=== PATIENT | female | born 1990 | race Caucasian/White ===

== ENCOUNTER 2020-08-21 18:48 | Emergency (ER) | payer OTHER, SELFPAY ==
--- NOTE | 2020-08-21 18:53 | XR_ITS ---
WS: [id number] XR chest 2V* [id number] REASON FOR EXAM: cp FINDINGS: The heart and mediastinum are within normal limits. Calcified granulomatous changes are seen in both hemithoraces. There is no active pulmonary parenchym al or pleural disease identified. Bony thorax is intact. XR/XR chest 2V* [id number] IMPRESSION: No acute chest abnormality.
--- NOTE | 2020-08-21 18:53 | ECG_ITS ---
[facility] Test Date: 2020-08-21 Pat Name: Nolvia Vila Department: Room: Gender: Female Gate Keeper: JOHN : 1990 Requested By: Howard Young Order Number: [id number] Reading MD: SRIDHAR ROGER Measurements Intervals [place] Rate: 84 P: 75 MD: 141 QRS: 96 QRSD: 79 T: 9 QT: 356 QTc: 423 Interpretive Statements SINUS RHYTHM WITH SINUS ARRHYTHMIA BORDERLINE RIGHT AXIS DEVIATION [QRS AXIS > 90] NONSPECIFIC T-WAVE ABNORMALITY No previous ECG available for comparison Electronically Signed On 08-23-2020 15:25:12 [employer]ALL [employer]AG[employer] by SRIDHAR ROGER [id number]
[2020-08-21 18:56] VITALS: BP 135/81; PULSE 93; RESP 16; TEMP 36.4; O2SAT 97; BMI 25.3
--- NOTE | 2020-08-21 19:56 | W.ED.URI ---
HPI - URI/Sore Throat General: Chief Complaint: Upper Respiratory Infection Stated Complaint: sore throat, pressure in chest since 2:30pm Time Seen by Provider: 08/21/20 19:55 History of Present Illness: HPI Narrative: Patient is a 29-year-old female comes to the ED with upper respiratory infection symptoms. Patient says since Thursday approximately 3 days ago she developed nasal drainage and congestion, maxillary sinus pain, sore throat and a mild nonproductive cough. Denies any fever, or chills. Patient saw her PCP today was diagnosed with upper respiratory infection and was prescribed amoxicillin. She says she took her first dose of amoxicillin today. She says today she developed some left upper chest pain that is tender upon palpation. She was worried that she might have developed some pneumonia and wanted to come to the ED for evaluation. Denies any shortness of breath, nausea/vomiting, abdominal pain, bladder or bowel symptoms. Associated symptoms: Reports chest pain (Palpable chest wall tenderness.) and nasal congestion; Deny abdominal pain, chills, diarrhea, fever(s), headache(s), nausea or vomiting Review of Systems Const: Denies: fever(s), chills or fatigue Eyes: Denies: change in vision or eye discomfort ENMT: Reports: throat pain, nasal discharge, nasal congestion and sinus pain (Maxillary sinus pain bilaterally); Denies: odynophagia Card: Reports: chest pain (Palpable chest wall tenderness.); Denies: palpitations, edema, swelling of feet/ankles, dyspnea on exertion or orthopnea Resp: Denies: dyspnea, productive cough or non-productive cough GI: Denies: abdominal pain, nausea, vomiting, diarrhea, constipation or hematochezia : Denies: flank pain, dysuria or hematuria Musc: Denies: neck pain, back pain or extremity swelling Skin/Breast: Denies: rash or new lesions Neuro: Denies: headache(s), numbness in extremities or weakness in extremities Physical Exam Const: COMMON NORMALS: no acute distress, patient oriented x3, healthy appearing and alert GENERAL APPEARANCE: cooperative and comfortable HENMT: COMMON NORMALS: normocephalic HEAD & SCALP: normocephalic MOUTH: Normal oral and palatal mucosa present THROAT: uvula midline and posterior oropharynx abnormal cobblestoning and erythema; no exudates Eye: COMMON NORMALS: Equal, round and reactive pupils present PUPIL: Yes Equal, round and reactive pupils present Neck/C-Spine: COMMON NORMALS: supple GENERAL: Yes normal visual inspection Chest: CHEST: Yes tenderness costochondral junction Resp: COMMON NORMALS: normal respiratory effort, No retractions, No use of accessory muscles and clear to auscultation bilaterally EFFORT & INSPECTION: Yes able to speak in complete sentences, No tachypneic and No respiratory distress AUSCULTATION: clear to auscultation bilaterally, no crackles and no wheezes Cardio: COMMON NORMALS: regular rate, regular rhythm, S1 normal heart sound present, S2 normal heart sound present, No gallops present (Cardio), No clicks present (Cardio), No murmurs present (Cardio) and Peripheral pulses 2+ throughout RATE: regular rate RHYTHM: regular rhythm HEART SOUNDS: S1 normal heart sound present and S2 normal heart sound present PERIPHERAL PULSES: Peripheral pulses 2+ throughout GI: COMMON NORMALS: Normal to inspection, nondistended, normoactive bowel sounds present, Soft to palpation, non-tender and no masses PALPATION: Yes Soft to palpation : COMMON NORMALS: Yes no CVA tenderness BLADDER/KIDNEY EXAM: Yes no CVA tenderness Back/Pelvis: COMMON NORMALS: no CVA tenderness Extremity: COMMON NORMALS: normal to inspection and no pedal edema Neuro: COMMON NORMALS: patient oriented x3 and moves all extremities SENSORIUM/ORIENTATION: Yes alert Skin: GENERAL SKIN EXAM: dry skin Course Vital Signs: Vital signs: Vital Signs Temperature 97.6 F 08/21/20 18:56 Pulse Rate 94 08/21/20 21:24 Respiratory Rate 16 08/21/20 21:24 Blood Pressure 136/79 08/21/20 21:24 Pulse Oximetry 98 08/21/20 21:24 MDM - URI/Sore Throat MDM Narrative: Medical decision making narrative: Patient is a 29-year-old female comes to the ED with URI symptoms and chest pain. Patient was seen by her PCP today and was given a prescription for amoxicillin. Patient has symptoms of sore throat, nasal drainage and congestion, maxillary sinus tenderness and chest wall tenderness. Denies fevers. Chest is tender to palpation over costochondral junction. Denies any shortness of breath. Lungs are clear to auscultation bilaterally and patient appears in no acute distress. CBC and CMP was unremarkable. Troponin negative, strep negative, chest x-ray showed no acute findings. EKG showed normal sinus rhythm with no ST segment elevation or depression seen. Patient was diagnosed with costochondritis and upper respiratory infection. She was told to continue taking her previously prescribed medications. Return to ED precautions given. She was told to take NSAIDs to help with chest pain. Follow-up with PCP in 7 to 10 days for reevaluation. Patient understood and agreed with plan. Lab Data: Attestation: I reviewed the patient's lab results. Labs: Lab Results 08/21/20 08/21/20 08/21/20 Range/Units 20:06 20:06 20:06 WBC 10.8 H (4.0-10.0) 10^3/ uL RBC 5.03 (4.1-5.3) 10^6/u L Hgb 15.0 (11.5-15.3) g/dL Hct 45.9 (37.0-47.0) % MCV 91.3 (81-99) fL MCH 29.8 (28.0-34.0) pg MCHC 32.7 (30.0-36.0) g/dL RDW 11.6 L (12.1-15.1) % Plt Count 326 (130-400) 10^3/c mm MPV 10.0 (7.4-10.4) fL Neut % (Auto) 65.8 % Lymph % (Auto) 23.8 % [place] % (Auto) 7.4 % Eos % (Auto) 2.1 % Baso % (Auto) 0.6 % Neut # (Auto) 7.09 (1.8-7.7) 10^3/u L Lymph # (Auto) 2.6 (0.8-4.8) 10^3/u L [place] # (Auto) 0.8 (0.2-0.9) 10^3/u L Eos # (Auto) 0.2 (0.0-0.8) 10^3/u L Baso # (Auto) 0.1 (0.0-0.1) 10^3/u L Nucleated RBC % (a uto) 0 % Nucleated RBCs # 0.0 /100WBC Sodium 139 (136-145) mmol/L Potassium 3.9 (3.5-5.1) mmol/L Chloride 105 (98-107) mmol/L Carbon Dioxide 20 L (22-29) mmol/L Anion Gap 17.9 (5-19) BUN 13 (6-20) mg/dL Creatinine 0.5 (0.5-0.9) mg/dL GFR Calculation 145.9 H (90-130) mL/min Glucose 96 (65-115) mg/dL Calculated Osmolal ity 288 (285-295) mOsm/k g Calcium 9.8 (8.5-10.5) mg/dL Total Bilirubin 0.2 (0.15-1.2) mg/dL AST 15 (0-32) U/L ALT 27 (0-33) U/L Alkaline Phosphata se 76 (35-105) IU/L Troponin T Gen 5 n g/L 6 (0-10) ng/L Total Protein 7.2 (6.6-8.7) g/dL Albumin 4.7 (3.5-5.2) g/dL Globulin 2.5 (1.3-4.6) g/dL HCG, Qual (Negative) Group A Strep Rapi d (Negative) 08/21/20 08/21/20 Range/Units 20:06 20:48 WBC (4.0-10.0) 10^3/ uL RBC (4.1-5.3) 10^6/u L Hgb (11.5-15.3) g/dL Hct (37.0-47.0) % MCV (81-99) fL MCH (28.0-34.0) pg MCHC (30.0-36.0) g/dL RDW (12.1-15.1) % Plt Count (130-400) 10^3/c mm MPV (7.4-10.4) fL Neut % (Auto) % Lymph % (Auto) % [place] % (Auto) % Eos % (Auto) % Baso % (Auto) % Neut # (Auto) (1.8-7.7) 10^3/u L Lymph # (Auto) (0.8-4.8) 10^3/u L [place] # (Auto) (0.2-0.9) 10^3/u L Eos # (Auto) (0.0-0.8) 10^3/u L Baso # (Auto) (0.0-0.1) 10^3/u L Nucleated RBC % (a uto) % Nucleated RBCs # /100WBC Sodium (136-145) mmol/L Potassium (3.5-5.1) mmol/L Chloride (98-107) mmol/L Carbon Dioxide (22-29) mmol/L Anion Gap (5-19) BUN (6-20) mg/dL Creatinine (0.5-0.9) mg/dL GFR Calculation (90-130) mL/min Glucose (65-115) mg/dL Calculated Osmolal ity (285-295) mOsm/k g Calcium (8.5-10.5) mg/dL Total Bilirubin (0.15-1.2) mg/dL AST (0-32) U/L ALT (0-33) U/L Alkaline Phosphata se (35-105) IU/L Troponin T Gen 5 n g/L (0-10) ng/L Total Protein (6.6-8.7) g/dL Albumin (3.5-5.2) g/dL Globulin (1.3-4.6) g/dL HCG, Qual Negative (Negative) Group A Strep Rapi d Negative (Negative) Imaging Data^: CXR: Attestation: I personally reviewed and interpreted this imaging study as follows: My impression: No acute findings. EKG Data^: EKG 1: Attestation: I personally reviewed and interpreted this EKG as follows: EKG interpretation date: 08/21/20 Interpretation: Sinus rhythm, 84 bpm, no ST segment elevation or depression seen. Discharge Plan Discharge Patient Disposition: Home Clinical Impression: Costochondritis Upper respiratory infection Qualifiers: URI type: acute nasopharyngitis (common cold) Qualified Code(s): J00 - Acute nasopharyngitis [common cold] Condition: Stable Prescriptions: No Action amoxicillin 875 mg Tablet 875 mg PO BID RF: 0 Control Pill 1 tab PO DAILY RF: 0 Discharge Orders: Discharge Order (Routine); Ordered 08/21/20 Ordered By: Isrrael Cox Referrals: Melchor Rich MD [Primary Care Provider] - Discharge Diet: Regular Discharge Activity: Resume usual activity Patient Instructions: Costochondritis (ED) Activity Restrictions/Additional Instructions: Follow-up with medical provider as directed in 7 to 10 days for reevaluation. Continue taking all previously prescribed medications. Return to the ER or your medical provider if condition worsens. Please read and understand discharge instructions. If any questions, please ask. Coding Level of Care Code ED Account Relationship Manager for Rajeev Fwd Exam Comprehensive
[2020-08-21 20:36] LABS: HCG, Serum Qual Negative (Negative)
[2020-08-21 20:48] LABS: Alanine Aminotransferase 27 U/L (0-33); Albumin Level 4.7 g/dL (3.5-5.2); Alkaline Phosphatase 76 IU/L (35-105); Anion Gap 17.9 (5-19); Aspartate Amino Transferase 15 U/L (0-32); Blood Urea Nitrogen 13 mg/dL (6-20); Calcium 9.8 mg/dL (8.5-10.5); Carbon Dioxide 20 mmol/L (22-29); Chloride 105 mmol/L (98-107); Creatinine Clr Calc Pharmacy 150.3981; Globulin 2.5 g/dL (1.3-4.6); Glomerular Filtration Rate 145.9 mL/min (90-130); Glucose 96 mg/dL (65-115); Osmolality Calculated 288 mOsm/kg (285-295); Potassium 3.9 mmol/L (3.5-5.1); Sodium 139 mmol/L (136-145); Total Bilirubin 0.2 mg/dL (0.15-1.2); Total Protein 7.2 g/dL (6.6-8.7)
[2020-08-21 20:50] LABS: Basophils # 0.1 10^3/uL (0.0-0.1); Basophils % 0.6 %; Eosinophils # 0.2 10^3/uL (0.0-0.8); Eosinophils % 2.1 %; Hematocrit 45.9 % (37.0-47.0); Lymphocytes # 2.6 10^3/uL (0.8-4.8); Lymphocytes % 23.8 %; Mean Corpuscular HGB Conc 32.7 g/dL (30.0-36.0); Mean Corpuscular Hemoglobin 29.8 pg (28.0-34.0); Mean Corpuscular Volume 91.3 fL (81-99); Monocytes # 0.8 10^3/uL (0.2-0.9); Monocytes % 7.4 %; Neutrophils # 7.09 10^3/uL (1.8-7.7); Neutrophils % 65.8 %; Nucleated Red Blood Cells % 0 %; Platelet Count 326 10^3/cmm (130-400); Red Blood Count 5.03 10^6/uL (4.1-5.3); Red Cell Distribution Width 11.6 % (12.1-15.1); White Blood Count 10.8 10^3/uL (4.0-10.0)
[2020-08-21 20:51] LABS: Troponin T (5th) Once 6 ng/L (0-10)
[2020-08-21 21:10] LABS: Rapid Strep A Test Negative (Negative)
[2020-08-21 21:24] VITALS: BP 136/79; PULSE 94; RESP 16; O2SAT 98
== END 2020-08-21 21:25 | disposition home or self-care (01) ==
PROVIDERS: Emergency Provider Physician Assistant; PCP Family Medicine
DX: M94.0 Chondrocostal junction syndrome [Tietze] (principal); J00 Acute nasopharyngitis [common cold]
CPT/HCPCS: 12345; 71046; 80053; 84484; 84703; 85025; 87081; 87880; 93005; 99283

== ENCOUNTER 2021-07-08 16:23 | Emergency (ER) | payer OTHER, SELFPAY ==
[2021-07-08 16:48] VITALS: BP 131/88; PULSE 82; RESP 16; TEMP 36.9; O2SAT 99
--- NOTE | 2021-07-08 17:35 | ED_ITS ---
Documented by User: Thomas Sanchez DO 07/13/21 15:15 HPI - General: Chief complaint: Abdominal Pain Stated complaint: Pelvic Pain, thinking poss miscarriage Time Seen by Provider: 07/08/21 17:09 History of Present Illness: HPI Narrative: 30-year-old female presents to the emergency room complaining of pelvic pain with vaginal bleeding. She started having the pain 2 weeks 2 days ago. She has been having some spotting with some old blood she denies any dysuria urgency or frequency has some suprapubic pain. She reports being approximately 6 weeks gestation patient is SAB 1. She usually sees Dr. Rich. She denies any other symptoms. No purulent vaginal discharge. MD Complaint: vaginal bleeding Onset (ago): hour(s) Pain Consistency: intermittent Location: pelvis Severity: mild Quality: Cramping Relieving factors: none Exacerbating factors: none Vaginal bleeding: light Patient : Yes care: none Associated symptoms: Deny abdominal pain, dyspareunia, dysuria, headache(s), malaise, nausea, rash, seizures, short of breath, syncope, vaginal bleeding, vaginal discharge, visual changes, vomiting or weakness Review of Systems Const: Denies: malaise ENMT: Denies: throat pain, ear or mastoid pain, nasal discharge or nasal congestion Card: Denies: syncope Resp: Denies: dyspnea, productive cough or non-productive cough GI: Denies: abdominal pain, nausea or vomiting : Denies: dysuria, vaginal discharge or dyspareunia Skin/Breast: Denies: rash or pruritus Neuro: Denies: headache(s) Physical Exam Const: COMMON NORMALS: no acute distress GENERAL APPEARANCE: cooperative and comfortable ORIENTATION/CONSCIOUSNESS: Yes awake, Yes oriented to person, Yes oriented to place and Yes oriented to time HENMT: COMMON NORMALS: normocephalic, atraumatic and hearing grossly normal bilaterally HEAD & SCALP: normocephalic and atraumatic Neck/C-Spine: COMMON NORMALS: no JVD Resp: COMMON NORMALS: normal respiratory effort, No retractions, No use of accessory muscles and clear to auscultation bilaterally AUSCULTATION: clear to auscultation bilaterally Cardio: COMMON NORMALS: no JVD, regular rate, regular rhythm and No murmurs present (Cardio) RATE: regular rate RHYTHM: regular rhythm GI: COMMON NORMALS: Soft to palpation and No hepatosplenomegaly present AUSCULTATION: Yes normoactive bowel sounds PALPATION: Yes Soft to palpation, No Tenderness to palpation present (GI), No Guarding due to palpation present (GI) and Yes No hepatosplenomegaly present : SPECULUM EXAM - VAGINA: No vaginal bleeding OB/EXTERNAL & SPECULUM: No vaginal bleeding Extremity: COMMON NORMALS: normal to inspection, capillary refill normal, no clubbing, cyanosis or edema, no calf tenderness and no pedal edema Neuro: SENSORIUM/ORIENTATION: Yes oriented to person, Yes oriented to place and Yes oriented to time Skin: COMMON NORMALS: no rashes or lesions noted GENERAL SKIN EXAM: no rashes or lesions noted Course Vital Signs: Vital signs: Vital Signs Temperature 98.4 F 07/08/21 16:48 Pulse Rate 72 07/08/21 19:32 Respiratory Rate 18 07/08/21 19:32 Blood Pressure 122/81 07/08/21 18:57 Pulse Oximetry 99 07/08/21 19:32 MDM - OB/Uterine Contractions MDM Narrative: Medical decision making narrative: Care turned over to Dr. Young at change of see his notes from diagnosis and disposition. Lab Data: Labs: Lab Results 07/08/21 07/08/21 07/08/21 17:40 17:40 17:40 WBC 11.4 10^3/uL H 10 ^3/uL (4.0-10.0) RBC 4.72 10^6/uL 10^6 /uL (4.1-5.3) Hgb 14.3 g/dL g/dL (11.5-15.3) Hct 43.0 % % (37.0-47.0) MCV 91.1 fl fl (81-99) MCH 30.3 pg pg (28.0-34.0) MCHC 33.3 g/dL g/dL (30.0-36.0) RDW 12.1 % % (12.1-15.1) Plt Count 298 10^3/cmm 10^3 /cmm (130-400) MPV 10.2 fL fL (7.4-10.4) Neut % (Auto) 69.9 % % Lymph % (Auto) 20.6 % % [place] % (Auto) 7.0 % % Eos % (Auto) 1.7 % % Baso % (Auto) 0.5 % % Neut # (Auto) 7.99 10^3/uL H 10 ^3/uL (1.8-7.7) Lymph # (Auto) 2.4 10^3/uL 10^3/ uL (0.8-4.8) [place] # (Auto) 0.8 10^3/uL 10^3/ uL (0.2-0.9) Eos # (Auto) 0.2 10^3/uL 10^3/ uL (0.0-0.8) Baso # (Auto) 0.1 10^3/uL 10^3/ uL (0.0-0.1) Nucleated RBC % (a uto) 0 % % Nucleated RBCs # 0.0 /100WBC /100W BC Sodium 137 mmol/L mmol/L (136-145) Potassium 3.8 mmol/L mmol/L (3.5-5.1) Chloride 105 mmol/L mmol/L (98-107) Carbon Dioxide 20 mmol/L L mmol/ L (22-29) Anion Gap 15.8 (5-19) BUN 11 mg/dL mg/dL (6-20) Creatinine 0.5 mg/dL mg/dL (0.5-0.9) GFR Calculation 144.9 mL/min H mL /min (90-130) Glucose 87 mg/dL mg/dL (65-115) Calculated Osmolal ity 283 mOsm/kg L mOs m/kg (285-295) Calcium 8.8 mg/dL mg/dL (8.5-10.5) Ser , Leighann i-Qnt 9551.00 mIU/mL mI U/mL Urine Color Urine Appearance Urine pH Ur Specific Gravit y Urine Protein Urine Glucose (UA) Urine Ketones Urine Blood Urine Nitrate Urine Bilirubin Urine Urobilinogen Ur Leukocyte Hillary ase Rho(D) Type Positive 07/08/21 17:49 WBC RBC Hgb Hct MCV MCH MCHC RDW Plt Count MPV Neut % (Auto) Lymph % (Auto) [place] % (Auto) Eos % (Auto) Baso % (Auto) Neut # (Auto) Lymph # (Auto) [place] # (Auto) Eos # (Auto) Baso # (Auto) Nucleated RBC % (a uto) Nucleated RBCs # Sodium Potassium Chloride Carbon Dioxide Anion Gap BUN Creatinine GFR Calculation Glucose Calculated Osmolal ity Calcium Ser , Leighann i-Qnt Urine Color Yellow (Yellow) Urine Appearance Clear (CLEAR) Urine pH 6 (5-7) Ur Specific Gravit y 1.020 (1.005-1.030) Urine Protein Neg (Negative) Urine Glucose (UA) Norm (Normal) Urine Ketones Negative (Negative) Urine Blood Neg (Negative) Urine Nitrate Negative (Negative) Urine Bilirubin Neg (Negative) Urine Urobilinogen 1 mg/dL H mg/dL (Negative) Ur Leukocyte Hillary ase Negative (Negative) Rho(D) Type Discharge Plan Discharge Patient Disposition: Home Clinical Impression: Abdominal pain affecting Condition: Stable Prescriptions: No Action amoxicillin 875 mg Tablet 875 mg PO BID RF: 0 Control Pill 1 tab PO DAILY RF: 0 Discharge Orders: Discharge ED (Routine); Ordered 07/08/21 Ordered By: Howard Young Referrals: Melchor Rich MD [Primary Care Provider] - 4-7 days Discharge Diet: Advance as tolerated Discharge Activity: Resume usual activity Patient Instructions: Abdominal Pain (ED) Coding Level of Care Code ED Consulting Software Engineer for Chg Fwd Documented by User: Howadr Young MD 07/08/21 19:26 HPI - General: Chief complaint: Abdominal Pain Stated complaint: Pelvic Pain, thinking poss miscarriage Time Seen by Provider: 07/08/21 17:09 Course Vital Signs: Vital signs: Vital Signs Temperature 98.4 F 07/08/21 16:48 Pulse Rate 72 07/08/21 19:32 Respiratory Rate 18 07/08/21 19:32 Blood Pressure 122/81 07/08/21 18:57 Pulse Oximetry 99 07/08/21 19:32 MDM - OB/Uterine Contractions MDM Narrative: Medical decision making narrative: Patient presents with abdominal pain and . Ultrasound here showed 6-week fetus with heart rate of 106 per maintenance service technician pelvic exam here showed no bleeding was a normal. She is stable for discharge is to follow-up with PCP and return if worsening. Lab Data: Labs: Lab Results 07/08/21 07/08/21 07/08/21 17:40 17:40 17:40 WBC 11.4 10^3/uL H 10 ^3/uL (4.0-10.0) RBC 4.72 10^6/uL 10^6 /uL (4.1-5.3) Hgb 14.3 g/dL g/dL (11.5-15.3) Hct 43.0 % % (37.0-47.0) MCV 91.1 fl fl (81-99) MCH 30.3 pg pg (28.0-34.0) MCHC 33.3 g/dL g/dL (30.0-36.0) RDW 12.1 % % (12.1-15.1) Plt Count 298 10^3/cmm 10^3 /cmm (130-400) MPV 10.2 fL fL (7.4-10.4) Neut % (Auto) 69.9 % % Lymph % (Auto) 20.6 % % [place] % (Auto) 7.0 % % Eos % (Auto) 1.7 % % Baso % (Auto) 0.5 % % Neut # (Auto) 7.99 10^3/uL H 10 ^3/uL (1.8-7.7) Lymph # (Auto) 2.4 10^3/uL 10^3/ uL (0.8-4.8) [place] # (Auto) 0.8 10^3/uL 10^3/ uL (0.2-0.9) Eos # (Auto) 0.2 10^3/uL 10^3/ uL (0.0-0.8) Baso # (Auto) 0.1 10^3/uL 10^3/ uL (0.0-0.1) Nucleated RBC % (a uto) 0 % % Nucleated RBCs # 0.0 /100WBC /100W BC Sodium 137 mmol/L mmol/L (136-145) Potassium 3.8 mmol/L mmol/L (3.5-5.1) Chloride 105 mmol/L mmol/L (98-107) Carbon Dioxide 20 mmol/L L mmol/ L (22-29) Anion Gap 15.8 (5-19) BUN 11 mg/dL mg/dL (6-20) Creatinine 0.5 mg/dL mg/dL (0.5-0.9) GFR Calculation 144.9 mL/min H mL /min (90-130) Glucose 87 mg/dL mg/dL (65-115) Calculated Osmolal ity 283 mOsm/kg L mOs m/kg (285-295) Calcium 8.8 mg/dL mg/dL (8.5-10.5) Ser , Leighann i-Qnt 9551.00 mIU/mL mI U/mL Urine Color Urine Appearance Urine pH Ur Specific Gravit y Urine Protein Urine Glucose (UA) Urine Ketones Urine Blood Urine Nitrate Urine Bilirubin Urine Urobilinogen Ur Leukocyte Hillary ase Rho(D) Type Positive 07/08/21 17:49 WBC RBC Hgb Hct MCV MCH MCHC RDW Plt Count MPV Neut % (Auto) Lymph % (Auto) [place] % (Auto) Eos % (Auto) Baso % (Auto) Neut # (Auto) Lymph # (Auto) [place] # (Auto) Eos # (Auto) Baso # (Auto) Nucleated RBC % (a uto) Nucleated RBCs # Sodium Potassium Chloride Carbon Dioxide Anion Gap BUN Creatinine GFR Calculation Glucose Calculated Osmolal ity Calcium Ser , Leighann i-Qnt Urine Color Yellow (Yellow) Urine Appearance Clear (CLEAR) Urine pH 6 (5-7) Ur Specific Gravit y 1.020 (1.005-1.030) Urine Protein Neg (Negative) Urine Glucose (UA) Norm (Normal) Urine Ketones Negative (Negative) Urine Blood Neg (Negative) Urine Nitrate Negative (Negative) Urine Bilirubin Neg (Negative) Urine Urobilinogen 1 mg/dL H mg/dL (Negative) Ur Leukocyte Hillary ase Negative (Negative) Rho(D) Type Discharge Plan Discharge Patient Disposition: Home Clinical Impression: Abdominal pain affecting Condition: Stable Prescriptions: No Action amoxicillin 875 mg Tablet 875 mg PO BID RF: 0 Control Pill 1 tab PO DAILY RF: 0 Discharge Orders: Discharge ED (Routine); Ordered 07/08/21 Ordered By: Howard Young Referrals: Melchor Rich MD [Primary Care Provider] - 4-7 days Discharge Diet: Advance as tolerated Discharge Activity: Resume usual activity Patient Instructions: Abdominal Pain (ED) Coding Level of Care Code ED Consulting Software Engineer for Rajeev Brennan
--- NOTE | 2021-07-08 17:35 | PC.NURSE ---
Pt 6 weeks . also with complaints of spotting. Onset yesterday.
[2021-07-08 17:57] VITALS: BP 125/76; PULSE 87; RESP 17; O2SAT 100
[2021-07-08 18:00] LABS: Basophils # 0.1 10^3/uL (0.0-0.1); Basophils % 0.5 %; Eosinophils # 0.2 10^3/uL (0.0-0.8); Eosinophils % 1.7 %; Hemoglobin 14.3 g/dL (11.5-15.3); Lymphocytes # 2.4 10^3/uL (0.8-4.8); Lymphocytes % 20.6 %; Mean Corpuscular HGB Conc 33.3 g/dL (30.0-36.0); Mean Corpuscular Hemoglobin 30.3 pg (28.0-34.0); Mean Corpuscular Volume 91.1 fl (81-99); Mean Platelet Volume 10.2 fL (7.4-10.4); Monocytes # 0.8 10^3/uL (0.2-0.9); Neutrophils # 7.99 10^3/uL (1.8-7.7); Neutrophils % 69.9 %; Nucleated Red Blood Cells % 0 %; Platelet Count 298 10^3/cmm (130-400); Red Blood Count 4.72 10^6/uL (4.1-5.3); Red Cell Distribution Width 12.1 % (12.1-15.1); White Blood Count 11.4 10^3/uL (4.0-10.0)
--- NOTE | 2021-07-08 18:04 | USR_ITS ---
PROCEDURE INFORMATION: Exam: US , Limited Exam date and time: 07/08/2021 6:04 PM Age: 30 years old Clinical indication: complicated by abdominal or pelvic pain; Left lower quadrant; First trimester (<14 weeks 0 days); Gestational age or lmp: 6 w 1 day; ; Additional info: Confirm intrauterine preg TECHNIQUE: Imaging protocol: Real-time ultrasound of the maternal uterus with image documentation. Exam focused on the clinical indication. Total images: 22 COMPARISON: [facility] OB > 14 weeks 12/02/2018 9:20 AM FINDINGS: Gestation: Single early intrauterine gestational sac. Small pole identified with measured age by crown rump length 6 weeks 0 days. heart rate: cardiac activity measured at 104 bpm. Placenta: No visible subchorionic hemorrhage. BIOMETRY: Estimated due date (AUA): TAISHA 03/03/2020. MATERNAL: Uterus: Uterus is mildly retroverted. Right adnexa: Right ovary identified measuring approximately 3.6 cm x 2.3 cm x 2.4 cm. Positive arterial flow to Doppler assessment. No visible right adnexal mass or cystic lesion. Left adnexa: Left ovary identified measuring approximately 2.5 cm x 1.1 cm x 2.2 cm. Positive arterial flow to Doppler assessment. No visible left adnexal mass or cystic lesion. Intraperitoneal space: No free fluid in the cul-de-sac. US/ OB limited [id number] IMPRESSION: Single very early intrauterine gestation with positive cardiac activity and measured age by crown rump length 6 weeks 0 days. Radiation Dose CTDIVOL = (mGy): DLP = (mGy-cm)
[2021-07-08 18:29] LABS: Add Urine Microscopic? NO; Charge for UA Resulting for Rev
[2021-07-08 18:33] LABS: Bilirubin Urine Neg (Negative); Blood Urine Neg (Negative); Glucose Urine UA Norm (Normal); Ketones Urine Negative (Negative); Leukocyte Esterase Urine Negative (Negative); Nitrate Urine Negative (Negative); Protein Urine Neg (Negative); Urine Appearance Clear (CLEAR); Urine Color Yellow (Yellow); Urobilinogen Urine 1 mg/dL (Negative); pH Urine 6 (5-7)
[2021-07-08 18:48] LABS: Anion Gap 15.8 (5-19); Blood Urea Nitrogen 11 mg/dL (6-20); Calcium 8.8 mg/dL (8.5-10.5); Carbon Dioxide 20 mmol/L (22-29); Chloride 105 mmol/L (98-107); Creatinine Clr Calc Pharmacy 148.5715; Glomerular Filtration Rate 144.9 mL/min (90-130); Glucose 87 mg/dL (65-115); Osmolality Calculated 283 mOsm/kg (285-295); Potassium 3.8 mmol/L (3.5-5.1); Sodium 137 mmol/L (136-145)
[2021-07-08 18:57] VITALS: BP 122/81; PULSE 84; O2SAT 100
[2021-07-08 19:32] VITALS: PULSE 72; RESP 18; O2SAT 99
== END 2021-07-08 19:33 | disposition home or self-care (01) ==
PROVIDERS: Family Medicine; Emergency Provider Emergency Medicine; PCP Family Medicine
DX: O26.891 Other specified pregnancy related conditions, first trimester (principal); R10.9 Unspecified abdominal pain; Z3A.01 Less than 8 weeks gestation of pregnancy
CPT/HCPCS: 76815; 80048; 81003; 84702; 85025; 87491; 87591; 87661; 99283; E0352

== ENCOUNTER 2021-10-06 18:47 | Emergency (ER) | payer OTHER, SELFPAY ==
[2021-10-06 18:55] VITALS: BP 121/81; PULSE 89; RESP 14; TEMP 36.7; O2SAT 99; BMI 25.3
--- NOTE | 2021-10-06 19:07 | USR_ITS ---
PROCEDURE INFORMATION: Exam: US Abdomen, Limited; Soft Tissue Exam date and time: 10/06/2021 7:07 PM Age: 30 years old Clinical indication: Abdominal pain; Localized; Right upper quadrant (ruq); ; Additional info: Abdominal pain/preg TECHNIQUE: Imaging protocol: US abdomen. Real time ultrasound with image documentation. Limited exam focused on the soft tissues. COMPARISON: CT abdomen pelvis w con* [id number] 04/18/2019 8:15 PM FINDINGS: Soft tissues: No obvious anterior abdominal wall hernia. US/US abdomen limited [id number] IMPRESSION: No obvious anterior abdominal wall hernia.
--- NOTE | 2021-10-06 19:07 | USR_ITS ---
PROCEDURE INFORMATION: Exam: US , Limited Exam date and time: 10/06/2021 7:07 PM Age: 30 years old Clinical indication: complicated by abdominal or pelvic pain; Right upper quadrant; Second trimester (14 weeks 0 days to 27 weeks 6 days); Gestational age or lmp: 18 w 4 day; ; Additional info: Abdominal pain TECHNIQUE: Imaging protocol: Real-time ultrasound of the maternal uterus with image documentation. Exam focused on the clinical indication. COMPARISON: OB limited [id number] 07/08/2021 6:50 PM FINDINGS: Gestation: Intrauterine gestation. heart rate: heart beat 144 bpm. presentation: Cephalic presentation. The inferior margin of the placenta in the cervix are partially obscured by cephalic presentation. Placenta: Posterior low-lying placenta with possible placenta previa. BIOMETRY: Estimated due date (AUA): TAISHA by ultrasound March 04, 2022. Gestational age (AUA): Single viable intrauterine with EGA 18 weeks 5 days. Femur length (FL): 2.86 cm femur length with EGA 18 weeks 5 days. US/ OB limited [id number] IMPRESSION: 1. Single viable intrauterine with EGA 18 weeks 5 days. 2. TAISHA by ultrasound March 04, 2022. 3. Cephalic presentation. 4. Posterior low-lying placenta with possible placenta previa. 5. The inferior margin of the placenta in the cervix are partially obscured by cephalic presentation. Subjectively normal amniotic fluid.
--- NOTE | 2021-10-06 19:27 | ED_ITS ---
Documented by User: CANDIDA Lopez 10/06/21 21:36 HPI - Abdominal Pain General: Chief Complaint: Abdominal Pain Stated Complaint: 19 Wks Preg ABD Pain Time Seen by Provider: 10/06/21 19:07 Source: patient Mode of arrival: ambulatory Limitations: no limitations History of Present Illness: HPI narrative: Patient is a 30-year-old female at 18w6d here for concerns of abdominal pain. Patient states abdominal pain initially began a couple of hours ago and states pain is located periumbilically. No radiation to her discomfort. She does describe some nausea without episodes of emesis. She has not noticed any changes to urinary or bowel habits. No fevers. No injury or trauma. She states she is feeling good movements. She does not complain of any contraction-like discomfort. She has no pelvic pain or back pain. No vaginal bleeding, discharge, or leakage of fluid. OB doctor is Dr. Rich. MD elicited complaint: abdominal pain Onset (ago): hour(s) Pain Consistency: constant Location: Periumbilical Radiation: none Migration to: no migration Exacerbating factors: nothing Relieving factors: nothing Associated Symptoms: Reports nausea; Denies change in stool character, chills, diarrhea, dysuria, fever(s), hematochezia, hematuria, melena and vomiting Related Data: Patient : Yes Review of Systems Const: Denies: fever(s), chills, body aches, fatigue or malaise Card: Denies: chest pain Resp: Denies: dyspnea GI: Reports: abdominal pain and nausea; Denies: vomiting, diarrhea, change in stool character, hematochezia or melena : Denies: flank pain, difficulty voiding, dysuria, urinary frequency, urinary urgency, hematuria, vaginal bleeding, vaginal discharge or pelvic pain Musc: Denies: back pain Skin/Breast: Denies: rash Neuro: Denies: headache(s) or dizziness Physical Exam Const: COMMON NORMALS: no acute distress, average body habitus, patient oriented x3, no limitations, healthy appearing, alert and well nourished GENERAL APPEARANCE: cooperative and anxious ORIENTATION/CONSCIOUSNESS: Yes awake, Yes oriented to person, Yes oriented to place and Yes oriented to time Resp: COMMON NORMALS: normal respiratory effort and clear to auscultation bilaterally AUSCULTATION: clear to auscultation bilaterally Cardio: COMMON NORMALS: regular rate and regular rhythm RATE: regular rate RHYTHM: regular rhythm GI: COMMON NORMALS: Normal to inspection, nondistended, normoactive bowel sounds present and Soft to palpation INSPECTION: Yes normal to inspection and Yes gravid abdomen AUSCULTATION: Yes normoactive bowel sounds PALPATION: Yes Soft to palpation and Yes Tenderness to palpation present (GI) (just above periumbilical region; fundus height normal per gestational age) : COMMON NORMALS: Yes no CVA tenderness BLADDER/KIDNEY EXAM: Yes no CVA tenderness Back/Pelvis: COMMON NORMALS: no CVA tenderness, thoracic and lumbar spine normal to inspection, no thoracic nor lumbar tenderness and thoraco-lumbar ROM normal Neuro: COMMON NORMALS: patient oriented x3 SENSORIUM/ORIENTATION: Yes alert, Yes oriented to person, Yes oriented to place and Yes oriented to time Skin: COMMON NORMALS: no rashes or lesions noted GENERAL SKIN EXAM: no rashes or lesions noted Course Vital Signs: Vital signs: Vital Signs Temperature 98.1 F 10/06/21 18:55 Pulse Rate 89 10/06/21 18:55 Respiratory Rate 14 10/06/21 18:55 Blood Pressure 121/81 10/06/21 18:55 Pulse Oximetry 99 10/06/21 18:55 MDM - Abdominal Pain MDM Narrative: Medical decision making narrative: Upon re-evaluation patient states her pain has improved with lying down. Patient's vital signs are normal. Labs overall are fairly unremarkable. US abdomen normal. US OB showing normal fetus with good fluid levels. Possible placenta previa. Recommend pelvic rest and follow up [facility] this week for continued discomfort. Strict return to ED precautions verbally given to patient. OB also came and evaluated/monitored patient and no contractions noted. Lab Data: Labs: Lab Results 10/06/21 10/06/21 10/06/21 19:30 19:30 19:30 WBC 12.4 10^3/uL H 10 ^3/uL (4.0-10.0) RBC 4.23 10^6/uL 10^6 /uL (4.1-5.3) Hgb 13.0 g/dL g/dL (11.5-15.3) Hct 37.9 % % (37.0-47.0) MCV 89.6 fl fl (81-99) MCH 30.7 pg pg (28.0-34.0) MCHC 34.3 g/dL g/dL (30.0-36.0) RDW 12.4 % % (12.1-15.1) Plt Count 244 10^3/cmm 10^3 /cmm (130-400) MPV 9.5 fL fL (7.4-10.4) Neut % (Auto) 69.4 % % Lymph % (Auto) 20.7 % % Harvey % (Auto) 6.6 % % Eos % (Auto) 1.7 % % Baso % (Auto) 0.5 % % Neut # (Auto) 8.58 10^3/uL H 10 ^3/uL (1.8-7.7) Lymph # (Auto) 2.6 10^3/uL 10^3/ uL (0.8-4.8) Harvey # (Auto) 0.8 10^3/uL 10^3/ uL (0.2-0.9) Eos # (Auto) 0.2 10^3/uL 10^3/ uL (0.0-0.8) Baso # (Auto) 0.1 10^3/uL 10^3/ uL (0.0-0.1) Nucleated RBC % (a uto) 0 % % Nucleated RBCs # 0.0 /100WBC /100W BC Sodium 134 mmol/L L mmol /L (136-145) Potassium 3.6 mmol/L mmol/L (3.5-5.1) Chloride 104 mmol/L mmol/L (98-107) Carbon Dioxide 19 mmol/L L mmol/ L (22-29) Anion Gap 14.6 (5-19) BUN 6 mg/dL mg/dL (6-20) Creatinine 0.4 mg/dL L mg/dL (0.5-0.9) GFR Calculation 187.4 mL/min H mL /min (90-130) Glucose 81 mg/dL mg/dL (65-115) Calculated Osmolal ity 275 mOsm/kg L mOs m/kg (285-295) Calcium 8.1 mg/dL L mg/dL (8.5-10.5) Total Bilirubin 0.2 mg/dL mg/dL (0.15-1.2) AST 10 U/L U/L (0-32) ALT 8 U/L U/L (0-33) Alkaline Phosphata se 61 IU/L IU/L (35-105) C-Reactive Protein 16.2 mg/L H mg/L (0.0-4.9) Total Protein 6.1 g/dL L g/dL (6.6-8.7) Albumin 3.7 g/dL g/dL (3.5-5.2) Globulin 2.4 g/dL g/dL (1.3-4.6) Lipase 15 U/L U/L (13-60) Urine Color Urine Appearance Urine pH Ur Specific Gravit y Urine Protein Urine Glucose (UA) Urine Ketones Urine Blood Urine Nitrate Urine Bilirubin Urine Urobilinogen Ur Leukocyte Hillary ase 10/06/21 19:50 WBC RBC Hgb Hct MCV MCH MCHC RDW Plt Count MPV Neut % (Auto) Lymph % (Auto) Harvey % (Auto) Eos % (Auto) Baso % (Auto) Neut # (Auto) Lymph # (Auto) Harvey # (Auto) Eos # (Auto) Baso # (Auto) Nucleated RBC % (a uto) Nucleated RBCs # Sodium Potassium Chloride Carbon Dioxide Anion Gap BUN Creatinine GFR Calculation Glucose Calculated Osmolal ity Calcium Total Bilirubin AST ALT Alkaline Phosphata se C-Reactive Protein Total Protein Albumin Globulin Lipase Urine Color Yellow (Yellow) Urine Appearance Clear (CLEAR) Urine pH 6 (5-7) Ur Specific Gravit y 1.020 (1.005-1.030) Urine Protein Neg (Negative) Urine Glucose (UA) Norm (Normal) Urine Ketones 1+ H (Negative) Urine Blood Neg (Negative) Urine Nitrate Negative (Negative) Urine Bilirubin Neg (Negative) Urine Urobilinogen Norm mg/dL mg/dL (Negative) Ur Leukocyte Hillary ase Negative (Negative) Imaging Data ^: US abdomen: Radiologist's impression: [address] [address] Ultrasound Report Signed Patient: Nolvia Solis Unit #: [id number] : 1990 Age/Sex: 30 / F ADM Date: 10/06/21 Loc: ER Room/Bed: Attending Dr: Ordering Provider/Ordering MD: Zee Gonzalez Date of Service: 10/06/21 Procedure(s): US abdomen limited 50066 Accession Number(s): [id number] Report Number: [id number] PROCEDURE INFORMATION: Exam: US Abdomen, Limited; Soft Tissue Exam date and time: 10/06/2021 7:07 PM Age: 30 years old Clinical indication: Abdominal pain; Localized; Right upper quadrant (ruq); ; Additional info: Abdominal pain/preg TECHNIQUE: Imaging protocol: US abdomen. Real time ultrasound with image documentation. Limited exam focused on the soft tissues. COMPARISON: CT abdomen pelvis w con* [id number] 04/18/2019 8:15 PM FINDINGS: Soft tissues: No obvious anterior abdominal wall hernia. US/US abdomen limited 29075 IMPRESSION: No obvious anterior abdominal wall hernia. Dictated By: Abelardo Dumont MD Signed By: Abelardo Dumont MD Signed Date/Time: 10/06/212034 DD/ 06 US OB: Radiologist's impression: [address] [address] Ultrasound Report Signed Patient: Nolvia Solis Unit #: [id number] : 1990 Age/Sex: 30 / F ADM Date: 10/06/21 Loc: ER Room/Bed: Attending Dr: Ordering Provider/Ordering MD: Zee Gonzalez Date of Service: 10/06/21 Procedure(s): US OB limited 45890 Accession Number(s): [id number] Report Number: [id number] PROCEDURE INFORMATION: Exam: US , Limited Exam date and time: 10/06/2021 7:07 PM Age: 30 years old Clinical indication: complicated by abdominal or pelvic pain; Right upper quadrant; Second trimester (14 weeks 0 days to 27 weeks 6 days); Gestational age or lmp: 18 w 4 day; ; Additional info: Abdominal pain TECHNIQUE: Imaging protocol: Real-time ultrasound of the maternal uterus with image documentation. Exam focused on the clinical indication. COMPARISON: US OB limited [id number] 07/08/2021 6:50 PM FINDINGS: Gestation: Intrauterine gestation. heart rate: heart beat 144 bpm. presentation: Cephalic presentation. The inferior margin of the placenta in the cervix are partially obscured by cephalic presentation. Placenta: Posterior low-lying placenta with possible placenta previa. BIOMETRY: Estimated due date (AUA): TAISHA by ultrasound March 04, 2022. Gestational age (AUA): Single viable intrauterine with EGA 18 weeks 5 days. Femur length (FL): 2.86 cm femur length with EGA 18 weeks 5 days. US/ OB limited [id number] IMPRESSION: 1. Single viable intrauterine with EGA 18 weeks 5 days. 2. TAISHA by ultrasound March 04, 2022. 3. Cephalic presentation. 4. Posterior low-lying placenta with possible placenta previa. 5. The inferior margin of the placenta in the cervix are partially obscured by cephalic presentation. Subjectively normal amniotic fluid. Dictated By: Abelardo Dumont MD Signed By: Abelardo Dumont MD Signed Date/Time: 10/06/212033 DD/ 06 Discharge Plan Discharge Patient Disposition: Home Clinical Impression: Abdominal pain in Qualifiers: Trimester: second trimester Qualified Code(s): O26.892 - Other specified related conditions, second trimester Condition: Stable Prescriptions: No Action amoxicillin 875 mg Tablet 875 mg PO BID RF: 0 Control Pill 1 tab PO DAILY RF: 0 Discharge Orders: Discharge ED (Routine); Ordered 10/06/21 Ordered By: Zee Gonzalez Referrals: Melchor Rich MD [Primary Care Provider] - Patient Instructions: Abdominal Pain (ED) Activity Restrictions/Additional Instructions: As we discussed please follow-up with your OB provider this week for further evaluation. You need to return to the emergency department for worsening or severe abdominal pain, repetitive episodes of vomiting or diarrhea, fevers, or any other concerns you may have. I hope you begin to feel better soon. Coding Level of Care Code ED Clinical Laboratory Aides Teacher for Chg Fwd Exam Detailed Documented by User: López Mcgrath DO 10/06/21 22:09 HPI - Abdominal Pain General: Chief Complaint: Abdominal Pain Stated Complaint: 19 Wks Preg ABD Pain Time Seen by Provider: 10/06/21 19:07 Course Vital Signs: Vital signs: Vital Signs Temperature 98.1 F 10/06/21 18:55 Pulse Rate 89 10/06/21 18:55 Respiratory Rate 14 10/06/21 18:55 Blood Pressure 121/81 10/06/21 18:55 Pulse Oximetry 99 10/06/21 18:55 MDM - Abdominal Pain MDM Narrative: Medical decision making narrative: This patient was originally seen by Mrs. Gonzalez?FESTUS Tamayo. I agree with her history, evaluation, and treatment. Lab Data: Labs: Lab Results 10/06/21 10/06/21 10/06/21 19:30 19:30 19:30 WBC 12.4 10^3/uL H 10 ^3/uL (4.0-10.0) RBC 4.23 10^6/uL 10^6 /uL (4.1-5.3) Hgb 13.0 g/dL g/dL (11.5-15.3) Hct 37.9 % % (37.0-47.0) MCV 89.6 fl fl (81-99) MCH 30.7 pg pg (28.0-34.0) MCHC 34.3 g/dL g/dL (30.0-36.0) RDW 12.4 % % (12.1-15.1) Plt Count 244 10^3/cmm 10^3 /cmm (130-400) MPV 9.5 fL fL (7.4-10.4) Neut % (Auto) 69.4 % % Lymph % (Auto) 20.7 % % Harvey % (Auto) 6.6 % % Eos % (Auto) 1.7 % % Baso % (Auto) 0.5 % % Neut # (Auto) 8.58 10^3/uL H 10 ^3/uL (1.8-7.7) Lymph # (Auto) 2.6 10^3/uL 10^3/ uL (0.8-4.8) Harvey # (Auto) 0.8 10^3/uL 10^3/ uL (0.2-0.9) Eos # (Auto) 0.2 10^3/uL 10^3/ uL (0.0-0.8) Baso # (Auto) 0.1 10^3/uL 10^3/ uL (0.0-0.1) Nucleated RBC % (a uto) 0 % % Nucleated RBCs # 0.0 /100WBC /100W BC Sodium 134 mmol/L L mmol /L (136-145) Potassium 3.6 mmol/L mmol/L (3.5-5.1) Chloride 104 mmol/L mmol/L (98-107) Carbon Dioxide 19 mmol/L L mmol/ L (22-29) Anion Gap 14.6 (5-19) BUN 6 mg/dL mg/dL (6-20) Creatinine 0.4 mg/dL L mg/dL (0.5-0.9) GFR Calculation 187.4 mL/min H mL /min (90-130) Glucose 81 mg/dL mg/dL (65-115) Calculated Osmolal ity 275 mOsm/kg L mOs m/kg (285-295) Calcium 8.1 mg/dL L mg/dL (8.5-10.5) Total Bilirubin 0.2 mg/dL mg/dL (0.15-1.2) AST 10 U/L U/L (0-32) ALT 8 U/L U/L (0-33) Alkaline Phosphata se 61 IU/L IU/L (35-105) C-Reactive Protein 16.2 mg/L H mg/L (0.0-4.9) Total Protein 6.1 g/dL L g/dL (6.6-8.7) Albumin 3.7 g/dL g/dL (3.5-5.2) Globulin 2.4 g/dL g/dL (1.3-4.6) Lipase 15 U/L U/L (13-60) Urine Color Urine Appearance Urine pH Ur Specific Gravit y Urine Protein Urine Glucose (UA) Urine Ketones Urine Blood Urine Nitrate Urine Bilirubin Urine Urobilinogen Ur Leukocyte Hillary ase 10/06/21 19:50 WBC RBC Hgb Hct MCV MCH MCHC RDW Plt Count MPV Neut % (Auto) Lymph % (Auto) Harvey % (Auto) Eos % (Auto) Baso % (Auto) Neut # (Auto) Lymph # (Auto) Harvey # (Auto) Eos # (Auto) Baso # (Auto) Nucleated RBC % (a uto) Nucleated RBCs # Sodium Potassium Chloride Carbon Dioxide Anion Gap BUN Creatinine GFR Calculation Glucose Calculated Osmolal ity Calcium Total Bilirubin AST ALT Alkaline Phosphata se C-Reactive Protein Total Protein Albumin Globulin Lipase Urine Color Yellow (Yellow) Urine Appearance Clear (CLEAR) Urine pH 6 (5-7) Ur Specific Gravit y 1.020 (1.005-1.030) Urine Protein Neg (Negative) Urine Glucose (UA) Norm (Normal) Urine Ketones 1+ H (Negative) Urine Blood Neg (Negative) Urine Nitrate Negative (Negative) Urine Bilirubin Neg (Negative) Urine Urobilinogen Norm mg/dL mg/dL (Negative) Ur Leukocyte Hillary ase Negative (Negative) Discharge Plan Discharge Patient Disposition: Home Clinical Impression: Abdominal pain in Qualifiers: Trimester: second trimester Qualified Code(s): O26.892 - Other specified related conditions, second trimester Condition: Stable Prescriptions: No Action amoxicillin 875 mg Tablet 875 mg PO BID RF: 0 Control Pill 1 tab PO DAILY RF: 0 Discharge Orders: Discharge ED (Routine); Ordered 10/06/21 Ordered By: Zee Gonzalez Referrals: Melchor Rich MD [Primary Care Provider] - Patient Instructions: Abdominal Pain (ED) Activity Restrictions/Additional Instructions: As we discussed please follow-up with your OB provider this week for further evaluation. You need to return to the emergency department for worsening or severe abdominal pain, repetitive episodes of vomiting or diarrhea, fevers, or any other concerns you may have. I hope you begin to feel better soon. Coding Level of Care Code ED Clinical Laboratory Aides Teacher for Rajeev Fwd Exam Detailed
[2021-10-06 19:38] LABS: Basophils # 0.1 10^3/uL (0.0-0.1); Basophils % 0.5 %; Eosinophils # 0.2 10^3/uL (0.0-0.8); Eosinophils % 1.7 %; Hematocrit 37.9 % (37.0-47.0); Lymphocytes # 2.6 10^3/uL (0.8-4.8); Lymphocytes % 20.7 %; Mean Corpuscular HGB Conc 34.3 g/dL (30.0-36.0); Mean Corpuscular Hemoglobin 30.7 pg (28.0-34.0); Mean Corpuscular Volume 89.6 fl (81-99); Mean Platelet Volume 9.5 fL (7.4-10.4); Monocytes # 0.8 10^3/uL (0.2-0.9); Monocytes % 6.6 %; Neutrophils # 8.58 10^3/uL (1.8-7.7); Neutrophils % 69.4 %; Nucleated Red Blood Cells % 0 %; Platelet Count 244 10^3/cmm (130-400); Red Blood Count 4.23 10^6/uL (4.1-5.3); Red Cell Distribution Width 12.4 % (12.1-15.1); White Blood Count 12.4 10^3/uL (4.0-10.0)
[2021-10-06 19:56] LABS: Add Urine Microscopic? NO; Charge for UA Resulting for Rev
[2021-10-06 19:59] LABS: Alanine Aminotransferase 8 U/L (0-33); Albumin Level 3.7 g/dL (3.5-5.2); Alkaline Phosphatase 61 IU/L (35-105); Anion Gap 14.6 (5-19); Aspartate Amino Transferase 10 U/L (0-32); Blood Urea Nitrogen 6 mg/dL (6-20); Calcium 8.1 mg/dL (8.5-10.5); Carbon Dioxide 19 mmol/L (22-29); Chloride 104 mmol/L (98-107); Globulin 2.4 g/dL (1.3-4.6); Glomerular Filtration Rate 187.4 mL/min (90-130); Glucose 81 mg/dL (65-115); Lipase 15 U/L (13-60); Osmolality Calculated 275 mOsm/kg (285-295); Potassium 3.6 mmol/L (3.5-5.1); Sodium 134 mmol/L (136-145); Total Bilirubin 0.2 mg/dL (0.15-1.2); Total Protein 6.1 g/dL (6.6-8.7)
[2021-10-06 19:59] LABS: Bilirubin Urine Neg (Negative); Blood Urine Neg (Negative); Glucose Urine UA Norm (Normal); Ketones Urine 1+ (Negative); Leukocyte Esterase Urine Negative (Negative); Nitrate Urine Negative (Negative); Protein Urine Neg (Negative); Urine Appearance Clear (CLEAR); Urine Color Yellow (Yellow); Urobilinogen Urine Norm (Negative); pH Urine 6 (5-7)
[2021-10-06 20:45] LABS: C Reactive Protein 16.2 mg/L (0.0-4.9)
== END 2021-10-06 21:33 | disposition home or self-care (01) ==
PROVIDERS: Emergency Provider Physician Assistant; PCP Family Medicine
DX: O26.892 Other specified pregnancy related conditions, second trimester (principal); R10.9 Unspecified abdominal pain; Z3A.19 19 weeks gestation of pregnancy; Z3A.18 18 weeks gestation of pregnancy
CPT/HCPCS: 76700; 76705; 76805; 76815; 80053; 81003; 83690; 85025; 86140; 99282

== ENCOUNTER 2022-02-08 12:05 | Outpatient (CLI) | payer OTHER, SELFPAY ==
[2022-02-08 12:05] VITALS: BMI 29.7
[2022-02-08 12:20] VITALS: BP 122/69; PULSE 82
[2022-02-08 12:41] VITALS: BP 118/68; PULSE 88
[2022-02-08 12:59] VITALS: BP 106/60; PULSE 85
[2022-02-08 13:19] VITALS: BP 107/57; PULSE 97
[2022-02-08 13:35] VITALS: BP 107/57; PULSE 97; RESP 18
== END 2022-02-08 13:40 | disposition home or self-care (01) ==
LOC: OBGYN 13:29 → OPOB 02-09 07:19
PROVIDERS: PCP Family Medicine; Visit Provider Family Medicine
DX: O26.899 Other specified pregnancy related conditions, unspecified trimester (principal); Z3A.00 Weeks of gestation of pregnancy not specified
CPT/HCPCS: 59025; 99211; G0378; G0379

== ENCOUNTER 2022-02-17 01:47 | Outpatient (CLI) | payer OTHER, SELFPAY ==
[2022-02-17 01:40] VITALS: BMI 29.7
[2022-02-17 02:03] VITALS: BP 137/82; PULSE 85; TEMP 36.4
[2022-02-17 04:32] LABS: Urine Color Yellow (Yellow)
[2022-02-17 04:33] LABS: Bilirubin Urine Neg (Negative); Blood Urine 3+ (Negative); Glucose Urine UA Norm (Normal); Ketones Urine Negative (Negative); Leukocyte Esterase Urine Negative (Negative); Nitrate Urine Negative (Negative); Protein Urine Neg (Negative); Specific Gravity, Urine 1.015 (1.005-1.030); Urobilinogen Urine Norm (Negative); pH Urine 8 (5-7)
[2022-02-17 04:35] LABS: Amorphous Sediment Urine 2+ /hpf; Bacteria Urine 3+ /hpf; RBC Urine >100 /hpf (0-2); Squamous Epithelial Cell Urine 25-40 /hpf (0-5); WBC Urine 0-4 /hpf (0-5)
[2022-02-17 04:36] LABS: Add Urine Culture? No
[2022-02-17] MEDS: cefTRIAXone 1,000 MG, lidocaine 1% 2.1 ML in SYRINGE 1 EACH 1000 MG IM (05:50)
[2022-02-17 06:37] VITALS: BP 137/82; PULSE 85; TEMP 36.4
== END 2022-02-17 05:57 | disposition home or self-care (01) ==
LOC: OPOB 01:48 → OBGYN 01:50
PROVIDERS: PCP Family Medicine; Visit Provider Family Medicine
DX: O26.899 Other specified pregnancy related conditions, unspecified trimester (principal); Z3A.00 Weeks of gestation of pregnancy not specified; R10.9 Unspecified abdominal pain
CPT/HCPCS: 59025; 81001; 96372; 99211; J0696

== ENCOUNTER 2022-02-25 08:09 | Inpatient (IN) | payer OTHER, SELFPAY ==
[2022-02-25] VITALS (54 sets, daily range): BP systolic 98–132; BP diastolic 53–96; PULSE 75–153; RESP 16–18; TEMP 36.6–36.9; O2SAT 96–100; BMI 31.5
--- NOTE | 2022-02-25 07:43 | PM.OPHPUD ---
Labor & Delivery H&P Update Date of Procedure: February 25, 2022 Date H&P Performed: 02/19/22 Changes to previous documentation: The patient is rashad consistently Admission Diagnosis: 31-year-old 4 para 2-0-1-2 at 39 weeks estimated gestational age presenting in active labor Planned procedure: Spontaneous vaginal delivery Other information: The patient is a healthy 31-year-old female. Her has been unremarkable. Her labs have also been unremarkable. Her blood type is O+. Her antibody screen is negative. Her glucose screen was negative. Her GBS status is negative. She is rubella nonimmune. The remainder of her labs are within normal limits. Related Problem List Diagnoses (1) 39 weeks gestation of : I anticipate a routine labor and vaginal delivery.
[2022-02-25] MEDS: lactated ringers 1,000 ML 999 ML IV ×2 (07:52→08:53)
[2022-02-25 08:03] LABS: Hematocrit 35.3 % (37.0-47.0); Hemoglobin 11.7 g/dL (11.5-15.3); Mean Corpuscular HGB Conc 33.1 g/dL (30.0-36.0); Mean Corpuscular Hemoglobin 30.2 pg (28.0-34.0); Mean Corpuscular Volume 91.2 fl (81-99); Mean Platelet Volume 11.1 fL (7.4-10.4); Platelet Count 271 10^3/cmm (130-400); Red Blood Count 3.87 10^6/uL (4.1-5.3); Red Cell Distribution Width 13.4 % (12.1-15.1); White Blood Count 18.1 10^3/uL (4.0-10.0)
[2022-02-25] MEDS: fentaNYL 50 mcg/mL INJ 2mL IVP (08:04)
[2022-02-25 08:18] LABS: Slide Review Slide Review Perform
--- NOTE | 2022-02-25 08:28 | PC.NURSE ---
Dr Huang called for epidural placement
--- NOTE | 2022-02-25 09:10 | ANES.PREANE2 ---
Pre-Anesthetic Assessment Height/Weight: Height 1.6 m Weight 80.739 kg Pulse Resp BP Pulse Ox 100 18 120/70 99 02/25/22 09:05 02/25/22 08:04 02/25/22 09:05 02/25/22 09:03 Familial anesthetic complications: None Was Beta Kimberlyn taken within 24 hours: N/A Was Clonidine taken within 24 hours: N/A Social No alcohol and No tobacco Exam alert, oriented x 3, clear to auscultation bilaterally and regular rate & rhythm Airway Submandibular: within normal limits Cervical ROM: within normal limits Mallampati: Class II Dentition: full History/ROS No significant history except as noted Anesthetic Plan ASA status: 2 Anesthesia: Regional (specify below) (Labor epidural) Medications/Allergies Home Medications Medication Instructions Recorded Confirmed Last Taken Type vit no.133-ferrous 1 tab PO DAILY 02/08/22 02/25/22 02/24/22 21:00 History fumarate 28 mg-folic acid 800 mcg tablet () Allergies Allergy/AdvReac Type Severity Reaction Status Date / Time No Known Allergies Allergy Verified 02/25/22 05:43 Current Medications Generic Name Dose Route Start Last Admin Trade Name Freq PRN Reason Stop Dose Admin Fentanyl 25 - 100 mcg 02/25/22 07:54 02/25/22 08:04 Fentanyl 50 Mcg/Ml Inj 2ml IVP 25 mcg Q1H PRN Administration SEVERE PAIN Lactated Ringer's 1,000 mls @ 999 mls/hr 02/25/22 07:41 02/25/22 08:53 Lactated Ringers IV 999 mls/hr .Q1H1M PRN Administration See label comments Ropivacaine 200 mg in 100 mls @ 13 mls/hr 02/25/22 07:45 02/25/22 08:54 Naropin Premix EPIDURAL 13 mls/hr .[id number] RAYNA Administration PFSH Anesthesia Female Reproductive History : 4 Data Anesthesia : 02/25/22 07:20 Short CBC 02/25/22 Range/Units 07:20 WBC 18.1 H (4.0-10.0) 10^3/uL Hgb 11.7 (11.5-15.3) g/dL Hct 35.3 L (37.0-47.0) % MCV 91.2 (81-99) fl Plt Count 271 (130-400) 10^3/cmm Cardiac Studies: No Data to Display Anesthesia Procedures Epidural Time Out Performed: Yes Consents Signed: Procedure Consent Consent: requested by attending/covering physician, from patient, risks and benefits reviewed and patient agrees to proceed Lumbar Level: L3-L4 Epidural position: sitting Epidural procedure: sterile prep of area, 1% lidocaine to numb the area, 18 g needle, neg for paresthesia, test dose given, 1.5% xylocaine 1:200k epi, placed PCEA, no systemic response, sterile dressing applied and 0.2% Ropiavacaine @ mls/hr (13) Additional Comments: COSME at 4cm, cath at 9cm, bolused 5mls of 2% lido PF
[2022-02-25] MEDS: oxytocin 30 UNIT/500 ML BAG 600 UNIT IV (09:43)
--- NOTE | 2022-02-25 09:54 | PM.DELIVERY ---
Delivery Note: Date of delivery: February 25, 2022 Pre-delivery diagnoses: 31-year-old 4 female at 39 weeks estimated gestational age in active labor Post-delivery diagnoses: Status post spontaneous vaginal delivery Procedure: Spontaneous vaginal delivery Delivering Physician: Melchor Rich Estimated blood loss (mL): 100 Pre-Delivery Course: The patient presented to the hospital in active labor. An amniotomy was performed. An epidural was placed. She progressed to complete without difficulty. Delivery: DELIVERY: The patient progressed to complete without difficulty. She delivered a female with a weight of 7 pounds 4 ounces with Apgars of 8, 9. The baby was delivered from the MERCEDES position and placed on the mother's abdomen. The cord was then clamped and cut. There was no nuchal cord. There was light meconium. The placenta and 3 vessel cord were delivered intact shortly thereafter. The perineum and vaginal vault were carefully examined. No lacerations were noted. Both the mother and the baby were in stable condition. Post-Delivery Status: Good A&P Assessment and plan (1) 39 weeks gestation of : Status: Acute (2) Vaginal delivery: I Anticipate routine care. Status: Acute Coding Level of Care Code Acute Chief Diversity Officer for Chg Fwd Diagnoses 39 weeks gestation of Z3A.39 Vaginal delivery O80
[2022-02-25 10:01] LABS: Absolute Eosinophils 0.1 10^3/cmm (0.0-0.7); Absolute Segmented Neutrophil 12.7 10/cmm (1.6-7.1); Band Neutrophils Absolute 1.4 10^3/cmm (0.0-1.2); Eosinophils 1 %; Lymphocytes 9 %; Segmented Neutrophils 70 %; Total Cells Counted 100 (0-100)
[2022-02-25 10:02] LABS: Absolute Neutrophil 14.1 10^3/cmm (1.4-6.5); Macrocytosis Trace; Platelet Estimate Normal (Normal); Polychromasia Trace; Rouleau 1+; Smudge Cells Trace
[2022-02-25] MEDS: benzocaine-menthol 78 gm Canister 1 SPRAY TOPICAL (11:32)
[2022-02-25] MEDS: lanolin oint 7 gm 1 APPLIC TOPICAL (11:32)
--- NOTE | 2022-02-25 11:39 | PC.NURSE ---
Pt up to bathroom without assistance. Moderate void. Marita care performed by pt. Pt became light headed and nauseated. Pt was assisted back to bed, juice given. Pt stated she felt better laying back down. Pt instructed not to try getting up without assistance, pt verbalized understanding.
[2022-02-25] MEDS: ibuprofen Oral Susp 100 mg/5mL UDC 800 MG PO (13:30)
--- NOTE | 2022-02-25 15:01 | ANE.PACU2 ---
Inpatient post-anesthesia follow up: Airway intact: Yes Vital signs: Temperature 98.0 F Pulse Rate 84 Respiratory Rate 16 Blood Pressure 112/65 Pulse Oximetry 100 Oxygen Delivery Me thod Room Air Oxygen Flow Rate Fraction of Inspir ed Oxygen Hydration adequate: Yes Nausea and vomiting: No Pain level: 2 Mental status: Baseline
--- NOTE | 2022-02-25 16:06 | PC.NURSE ---
ambulated to OB-8. oriented to room and call light. discussed proud parent pack and feeding log.
[2022-02-25] MEDS: acetaminophen 650 mg/20.3 mL UDC PO ×2 (16:47→22:21)
[2022-02-25] MEDS: docusate sodium 100 mg Capsule PO (18:14)
[2022-02-25 22:28] LABS: Hematocrit 33.5 % (37.0-47.0); Mean Corpuscular HGB Conc 32.8 g/dL (30.0-36.0); Mean Corpuscular Hemoglobin 30.3 pg (28.0-34.0); Mean Corpuscular Volume 92.3 fl (81-99); Mean Platelet Volume 10.9 fL (7.4-10.4); Platelet Count 232 10^3/cmm (130-400); Red Blood Count 3.63 10^6/uL (4.1-5.3); Red Cell Distribution Width 13.3 % (12.1-15.1); White Blood Count 20.3 10^3/uL (4.0-10.0)
[2022-02-26 04:11] VITALS: BP 99/61; PULSE 76; RESP 16; TEMP 36.9
--- NOTE | 2022-02-26 07:22 | P.DS_ITS ---
Discharge Providers [employer] Date of Admission: 02/25/22 08:09 Date of Discharge: 02/26/22 Attending Provider at Admission: Melchor Rich MD Attending Provider at Discharge: Melchor Rich MD Primary Care Provider: Melchor Rich MD Diagnoses at Discharge Discharge Diagnosis (1) 39 weeks gestation of : Status: Acute Reason for Visit Reason for Visit: contractions Hospital Course Hospital Course The patient arrived at the hospital in active labor. She progressed to complete and had an unremarkable delivery of a healthy appearing female . Her course was also unremarkable. Her pain was well controlled. She breast-fed well. Her bleeding was within normal limits. Information Peripartum Data: Delivery Method: Vaginal Physical Exam Narrative: The patient is alert. She appears comfortable. Her heart has a regular rate and rhythm with no murmurs appreciated. Lungs are clear to auscultation bilaterally. Her fundus is firm and below the umbilicus. Urinary Catheter Management: Hennessy Latex: Cath Placed During This Visit: yes, but has since been removed by the nurse Reason for Continuing Indwelling Catheter: Decision to DC Catheter Urinary Catheter Date of Insertion: 02/25/22 Urinary Catheter Time of Insertion: 09:15 Date Urinary Catheter Removed: 02/25/22 Time Urinary Catheter Discontinued: 09:29 Discharge Data Studies Completed and Pending Laboratory Results WBC 20.3 10^3/uL (4.0-10.0) H 02/25/22 22:00 RBC 3.63 10^6/uL (4.1-5.3) L 02/25/22 22:00 Hgb 11.0 g/dL (11.5-15.3) L 02/25/22 22:00 Hct 33.5 % (37.0-47.0) L 02/25/22 22:00 MCV 92.3 fl (81-99) 02/25/22 22:00 MCH 30.3 pg (28.0-34.0) 02/25/22 22:00 MCHC 32.8 g/dL (30.0-36.0) 02/25/22 22:00 RDW 13.3 % (12.1-15.1) 02/25/22 22:00 Plt Count 232 10^3/cmm (130-400) 02/25/22 22:00 MPV 10.9 fL (7.4-10.4) H 02/25/22 22:00 Lymph % (Auto) Not Reportable 02/25/22 07:20 [place] % (Auto) Not Reportable 02/25/22 07:20 Lymph # (Auto) Not Reportable 02/25/22 07:20 [place] # (Auto) Not Reportable 02/25/22 07:20 Total Counted 100 (0-100) 02/25/22 07:20 Atypical Lymphs % Not Reportable 02/25/22 07:20 Absolute Neutrophils 14.1 10^3/cmm (1.4-6.5) H 02/25/22 07:20 Segmented Neutrophils 70 % 02/25/22 07:20 Abs Segm Neuts (Man) 12.7 10/cmm (1.6-7.1) H 02/25/22 07:20 Band Neutrophils 8.0 % 02/25/22 07:20 Abs Band Neuts (Man) 1.4 10^3/cmm (0.0-1.2) H 02/25/22 07:20 Lymphocytes (Manual) 9 % 02/25/22 07:20 Monocytes (Manual) 11.0 % 02/25/22 07:20 Absolute Monocytes 2.0 10^3/cmm (0.1-0.6) H 02/25/22 07:20 Eosinophils (Manual) 1 % 02/25/22 07:20 Absolute Eosinophils 0.1 10^3/cmm (0.0-0.7) 02/25/22 07:20 Basophils (Manual) Not Reportable 02/25/22 07:20 Nucleated RBCs 1.0 /100WBC (0-1) 02/25/22 07:20 Smudge Cells Trace 02/25/22 07:20 Platelet Estimate Normal (Normal) 02/25/22 07:20 Polychromasia Trace 02/25/22 07:20 Macrocytosis Trace 02/25/22 07:20 Rouleaux 1+ H 02/25/22 07:20 Vitals Last Vital Signs Temp 98.4 F 02/26/22 04:11 Pulse 76 02/26/22 04:11 Resp 16 02/26/22 04:11 BP 99/61 02/26/22 04:11 Pulse Ox 96 02/25/22 19:24 Discharge Plan Discharge Condition: Stable Prescriptions: New ibuprofen [Children's Ibuprofen] 100 mg/5 mL Suspension 600 mg PO Q8H PRN (Reason: Mild Pain Or Increase Temp) Qty: 300 0RF No Action 28-800 mg-mcg Tablet 1 tab PO DAILY 0RF Discharge Orders: Discharge Order (Routine); Ordered 02/26/22 Ordered By: Melchor Rich Referrals: Melchor Rich MD [Primary Care Provider] - 6 Weeks Discharge Diet: Usual diet Discharge Activity: Limit activity as instructed Patient Instructions: Depression (DC), Bleeding (DC), Preeclampsia and Eclampsia After Delivery (GEN), OB Discharge Report, OB Food/Drug Interaction Guide, OB Care at Home, Opioid Safety, OB Home Care, OB Vaginal Deliveries, Abnormal Bleeding Discharge Attestations [employer] Time Spent in Discharge Care*: less than 30 min Coding Level of Care Code Acute Poultry Buyer for Chg Fwd Diagnoses 39 weeks gestation of Z3A.39
[2022-02-26] MEDS: docusate sodium 100 mg Capsule PO (09:22)
[2022-02-26] MEDS: prenatal vitamin Capsule 1 CAP PO (09:23)
[2022-02-26] MEDS: ibuprofen Oral Susp 100 mg/5mL UDC 800 MG PO (09:23)
[2022-02-26 12:00] VITALS: BP 120/68; PULSE 72; RESP 16; TEMP 36.6; O2SAT 98
== END 2022-02-26 12:00 | disposition home or self-care (01) | DRG 807 ==
LOC: OPOB 08:10 → OBGYN 08:10
PROVIDERS: Admitting Provider Family Medicine; PCP Family Medicine; Visit Provider Family Medicine
DX: O80 Encounter for full-term uncomplicated delivery (principal); Z37.0 Single live birth; Z3A.39 39 weeks gestation of pregnancy
CPT/HCPCS: 12345; 36415; 51702; 59025; 59409; 85007; 85025; 85027; 99211; J2795; J3010